=== PATIENT | female | born 1985 | race Caucasian/White ===

== ENCOUNTER 2016-12-18 09:54 | Emergency (ER) | payer MEDICAID ==
[~2016-12-18] VITALS: Wt 78.5 kg
[~2016-12-18 09:54] MED LIST: NO CURRENT MEDS; PREN1TAB49 PO
[2016-12-18] MEDS ORDERED: ONDANSETRON (ODT) 4 MG TAB ODT STA (12:33)
[2016-12-18] MEDS ORDERED: MECLIZINE 12.5 MG TAB PO ONE (13:00)
[2016-12-18] MEDS ORDERED: IBUPROFEN 200 MG TAB PO ONE (13:00)
--- NOTE | 2016-12-18 14:21 | ERD ---
ER Documentation Chief Complaint Date/Time DATE: 12/18/16 TIME: 14:16 Chief Complaint DIZZINESS WITH NAUSEA AND VOMITING HPI This is a 31 year old female presenting to ER with complaints of dizziness, nausea and vomiting x 6 days. Patient has had one episode of nonbloody nonbilious emesis today. Patient states she feels dizzy. Patient has mild headache. No head trauma or injury. No fevers or chills. No abdominal pain. ROS All systems reviewed and are negative except as per history of present illness. Medications Home Meds Active Scripts Ondansetron Hcl* (Zofran*) 4 Mg Tablet, 4 MG PO Q6H for NAUSEA AND/OR VOMITING, #10 TAB Prov:KHRIS VILLEGAS NP 12/18/16 Meclizine Hcl* (Antivert*) 12.5 Mg Tab, 12.5 MG PO Q6H Y for DIZZINESS, #20 TAB Prov:KHRIS VILLEGAS NP 12/18/16 Reported Medications Vits W-Ca,Fe,Fa(<1MG) () 1 Tab Tablet, PO DAILY 11/24/10 Vits W-Ca,Fe,Fa(<1MG) () 1 Tab Tablet, PO D 11/04/10 [No Current Meds] No Conflict Check 08/24/09 Allergies Allergies: Coded Allergies: No Known Allergy (Verified Allergy, Unknown, 11/22/10) PMhx/Soc History of Surgery: No Anesthesia Reaction: No Hx Neurological Disorder: No Hx Respiratory Disorders: No Hx Cardiac Disorders: No Hx Psychiatric Problems: No Hx Miscellaneous Medical Probl: Yes (HTN) Hx Alcohol Use: No Hx Substance Use: No Hx Tobacco Use: No Physical Exam Vitals Vital Signs Date Time Temp Pulse Resp B/P Pulse Ox O2 Delivery O2 Flow Rate FiO2 12/18/16 16:02 98.5 60 20 119/56 98 Room Air 12/18/16 10:05 97.8 67 16 148/62 99 Physical Exam Const: No acute distress, alert Head: Atraumatic Eyes: Normal Conjunctiva ENT: Normal External Ears, Nose and Mouth. Neck: Full range of motion..~ No meningismus. Resp: Clear to auscultation bilaterally Cardio: Regular rate and rhythm, no murmurs Abd: Soft, non tender, non distended. Normal bowel sounds Skin: No petechiae or rashes Back: No midline or flank tenderness Ext: No cyanosis, or edema Neur: Awake and alert Psych: Normal Mood and Affect Results 24 hrs Laboratory Tests Test 12/18/16 12:40 Urine Color RED Urine Clarity TURBID Urine pH 6.0 Urine Specific [place] 1.025 Urine Ketones NEGATIVEmg/dL Urine Nitrite NEGATIVEmg/dL Urine Bilirubin NEGATIVEmg/dL Urine Urobilinogen 0.2 E.U./dLmg/dL Urine Leukocyte Esterase TRACELeu/ul Urine Microscopic RBC >200/HPF Urine Microscopic WBC 2-5/HPF Urine Squamous Epithelial Cells FEW/HPF Urine Mucus FEW/HPF Urine Hemoglobin 3+mg/dL Urine Glucose NEGATIVEmg/dL Urine Total Protein 2+mg/dl Current Medications Medications (Trade) Dose Ordered Sig/Wily Route PRN Reason Start Time Stop Time Status Last Admin Dose Admin Ondansetron HCl (Zofran Odt) 4 mg ONCE STAT ODT 12/18/16 12:33 12/18/16 12:36 DC 12/18/16 12:56 Meclizine HCl (Antivert) 25 mg ONCE ONCE PO 12/18/16 13:00 12/18/16 13:01 DC 12/18/16 12:56 Ibuprofen (Motrin) 400 mg ONCE ONCE PO 12/18/16 13:00 12/18/16 13:01 DC 12/18/16 12:56 Procedures/MDM MDM: 31 year old female presents to ER with dizziness, nausea and vomiting x 6 days. Patient given meclizine, ibuprofen and Zofran p.o. while in the ED. No active vomiting while in the ED. No fevers or chills. Patient feels better after Medications. Patient has positive Galva-Hallpike maneuver on physical exam. Denies headache, weakness or fatigue. No neck pain. Differential diagnosis includes but not limited to vertigo, presyncope, migraine headache, disequilibrium, hyperventilation, hypoglycemia, acute AR and dizziness not otherwise specified. Patient is appropriate for outpatient management and will be given prescription for meclizine and Zofran. Instructed patient to follow-up with primary care provider in the next 2-3 days for reassessment. Return to ED for any high fever , chest pain, difficulty breathing, shortness breath, wheezing, vomiting, diarrhea, abdominal pain or any new or worsening symptoms. Patient verbalizes understanding. All questions answered at discharge. Departure Diagnosis: Primary Impression: Dizziness Condition: Stable KHRIS VILLEGAS NP Dec 18, 2016 14:21
[2016-12-18 14:35] LABS: UR CLARITY TURBID (CLEAR); UR COLOR RED (YELLOW)
[2016-12-18 14:36] LABS: UR BILIRUBIN (Dip) NEGATIVE (NEGATIVE); UR BLOOD (Dip) 3+ mg/dL (NEGATIVE); UR GLUCOSE (Dip) NEGATIVE (NEGATIVE); UR KETONES (Dip) NEGATIVE (NEGATIVE); UR NITRITE (Dip) NEGATIVE (NEGATIVE); UR TOTAL PROTEIN (Dip) 2+ mg/dl (NEGATIVE); UR UROBILINOGEN (Dip) 0.2 E.U./dL mg/dL (NEGATIVE)
[2016-12-18 14:37] LABS: ADD UMIC YES; UR LEUKOCYTE ESTERASE (Dip) TRACE Leu/ul (NEGATIVE); UR SQUAMOUS EPITHELIAL CELL FEW /HPF (FEW); URINE RBCS >200 /HPF (0)
[2016-12-18 14:38] LABS: UR MUCUS FEW /HPF (NONE SEEN)
[2016-12-18] MEDS ORDERED: MECL12.574 PO (15:53)
[2016-12-18] MEDS ORDERED: ONDA4TAB8 PO (15:54)
[2016-12-18 16:02] VITALS: BP 119/56; PULSE 60; RESP 20; TEMP 98.5
== END 2016-12-18 16:02 | disposition home or self-care (01) ==
LOC: FTE 09:54
DX: R42 Dizziness and giddiness (principal); R11.2 Nausea with vomiting, unspecified; I10 Essential (primary) hypertension
CPT/HCPCS: 81001; Z7502; Z7610; 99283